=== PATIENT | female | born 1990 | race Caucasian/White ===

== ENCOUNTER 2017-10-06 12:34 | Emergency (ER) | payer MEDICAID ==
[~2017-10-06] VITALS: Ht 167.6 cm; Wt 70.4 kg
[2017-10-06 12:45] VITALS: BP 133/77
[2017-10-06] MEDS ORDERED: MELA3TAB2 PO (13:14)
[2017-10-06] MEDS ORDERED: PREN1TAB85 PO (13:14)
[2017-10-06 13:15] LABS: BASOPHILS # (AUTO) 0.04 x10^3/uL (0-0.1); BASOPHILS % (AUTO) 0 % (0-1); EOSINOPHILS # (AUTO) 0.08 x10^3/uL (0-0.4); EOSINOPHILS % (AUTO) 1 % (1-7); LYMPHOCYTES # (AUTO) 2.98 x10^3/uL (1-3.4); LYMPHOCYTES % (AUTO) 25 % (22-44); MD NO; MEAN CORPUSCULAR HGB CONC 33.9 g/dL (32.4-35.8); MEAN CORPUSCULAR VOLUME 100.5 fL (80-100); MEAN PLATELET VOLUME 10.2 fL (7.4-10.4); MONOCYTES # (AUTO) 0.55 x10^3/uL (0.2-0.8); MONOCYTES % (AUTO) 5 % (2-9); NEUTROPHILS # (AUTO) 8.14 x10^3/uL (1.8-6.8); NEUTROPHILS % (AUTO) 69 % (42-75); PLATELET COUNT 195 x10^3/uL (130-400); RED BLOOD COUNT 3.78 x10^6/uL (3.82-5.3); RED CELL DISTRIBUTION WIDTH 12.8 % (9.6-15.2)
[2017-10-06 13:26] LABS: ALBUMIN 3.1 g/dL (3.4-5.0); ANION GAP 8 mmol/L (5-15); CALCIUM 8.8 mg/dL (8.5-10.1); CHLORIDE 109 mmol/L (98-107); CREATININE 0.58 mg/dL (0.55-1.02)
[2017-10-06 13:35] LABS: MICROSCOPIC AUTO
[2017-10-06 13:36] LABS: CULTURE INDICATED? YES
== END 2017-10-06 14:26 | disposition home or self-care (01) ==
LOC: ED 14:20
DX: O26.892 Other specified pregnancy related conditions, second trimester (principal); Z3A.18 18 weeks gestation of pregnancy; R10.2 Pelvic and perineal pain
CPT/HCPCS: 36415; 76815; 80048; 81001; 82040; 84702; 85025; 87086; 99285

== ENCOUNTER 2017-12-30 18:05 | Outpatient (CLI) | payer MEDICAID ==
[~2017-12-30] VITALS: Ht 167.6 cm; Wt 73.6 kg
[~2017-12-30 18:05] MED LIST: MELA3TAB2 PO; PREN1TAB85 PO
[2017-12-30 18:53] LABS: MICROSCOPIC NOT IND
[2017-12-30 18:54] VITALS: BP 120/70
[2017-12-30 19:07] LABS: AMPHETAMINE SCREEN, URINE Negative (Negative); BARBITURATE SCREEN, URINE Negative (Negative); BENZODIAZEPINE SCREEN, URINE Negative (Negative); CANNABINOID SCREEN, URINE Positive (Negative); COCAINE SCREEN, URINE Negative (Negative); METHADONE SCREEN, URINE Negative (Negative); OPIATE SCREEN, URINE Negative (Negative)
== END 2017-12-30 19:35 | disposition home or self-care (01) ==
LOC: LDOP 18:05
PROVIDERS: ATTEND Obstetrics & Gynecology
DX: O36.8130 Decreased fetal movements, third trimester, not applicable or unspecified (principal); Z3A.30 30 weeks gestation of pregnancy
CPT/HCPCS: 59025; 80307; 81003; 87086; 99211; G0463

== ENCOUNTER 2018-03-03 07:21 | Inpatient (IN) | payer MEDICAID ==
[~2018-03-03] VITALS: Ht 167.6 cm; Wt 86.0 kg
[2018-03-03] MEDS ORDERED: OXYTOCIN 30U/ 0.9% NaCL 500ML 500 ML IV ONE (08:06)
[2018-03-03] MEDS ORDERED: LACTATED RINGERS 1,000 ML IV SCH (08:06)
[2018-03-03] MEDS ORDERED: D5%-LACTATED RINGERS 1,000 ML IV SCH (08:06)
[2018-03-03] MEDS ORDERED: OXYTOCIN 30U/ 0.9% NaCL 500ML 500 ML IV PRN (08:06)
[2018-03-03] MEDS ORDERED: PLEASE ENTER HEIGHT AND WEIGHT MC SCH (08:30)
[2018-03-03] MEDS ORDERED: ONDANSETRON 2MG/ML, 2ML IVPush PRN (08:30)
[2018-03-03] MEDS ORDERED: CALCIUM CARBONATE 500 MG TAB.CHEW PO PRN ×2 (08:30→19:30)
[2018-03-03] MEDS ORDERED: OXYTOCIN 30U/ 0.9% NaCL 500ML 500 ML ONE ×2 (08:32→19:22)
[2018-03-03] MEDS ORDERED: NEWBORN KIT ONE ×2 (08:32→13:02)
[2018-03-03] MEDS ORDERED: MISOPROSTOL 200 MCG TABLET ONE (08:32)
[2018-03-03 08:44] LABS: BASOPHILS # (AUTO) 0.04 x10^3/uL (0-0.1); BASOPHILS % (AUTO) 0 % (0-1); EOSINOPHILS # (AUTO) 0.13 x10^3/uL (0-0.4); EOSINOPHILS % (AUTO) 1 % (1-7); LYMPHOCYTES # (AUTO) 2.87 x10^3/uL (1-3.4); LYMPHOCYTES % (AUTO) 32 % (22-44); MD NO; MEAN CORPUSCULAR HEMOGLOBIN 32.9 pg (27.0-34.8); MEAN CORPUSCULAR HGB CONC 33.2 g/dL (32.4-35.8); MEAN CORPUSCULAR VOLUME 99.3 fL (80-100); MEAN PLATELET VOLUME 9.5 fL (7.4-10.4); MONOCYTES # (AUTO) 0.54 x10^3/uL (0.2-0.8); MONOCYTES % (AUTO) 6 % (2-9); NEUTROPHILS # (AUTO) 5.46 x10^3/uL (1.8-6.8); NEUTROPHILS % (AUTO) 61 % (42-75); PLATELET COUNT 185 x10^3/uL (130-400); RED BLOOD COUNT 3.44 x10^6/uL (3.82-5.3); RED CELL DISTRIBUTION WIDTH 13.8 % (9.6-15.2)
[2018-03-03 09:22] VITALS: BP 122/67
[2018-03-03] MEDS ORDERED: FENTANYL PF 100 MCG/2ML ONE ×2 (16:40→17:35)
[2018-03-03] MEDS: FENTANYL PF 100 MCG/2ML IVPush PRN ×2 (16:45→17:36)
[2018-03-03] MEDS ORDERED: FENTANYL/BUPIV./NS/PF 250 ML EPIDCONT SCH (17:31)
[2018-03-03] MEDS ORDERED: FENTANYL PF 500 MCG, BUPIVACAINE/PF 0.5%, 30ML 62.5 ML in SODIUM CHLORIDE 0.9% 177.5 ML EPIDCONT SCH (18:00)
[2018-03-03] MEDS ORDERED: MEPERIDINE/PF 100 MG/ML IM PRN (18:30)
[2018-03-03] MEDS ORDERED: OXYTOCIN 30U/ 0.9% NaCL 500ML 500 ML IV SCH (19:18)
[2018-03-03] MEDS ORDERED: IBUPROFEN 600 MG TABLET ONE (19:23)
[2018-03-03] MEDS: OXYTOCIN 30U/ 0.9% NaCL 500ML 500 ML IV SCH (19:28)
[2018-03-03] MEDS ORDERED: MAGNESIUM HYDROXIDE 8%, 30ML UDC PO PRN (19:30)
[2018-03-03] MEDS ORDERED: ACETAMINOPHEN 325 MG TABLET PO PRN (19:30)
[2018-03-03] MEDS ORDERED: OXYTOCIN 10 UNITS/ML, 1ML IM PRN (19:30)
[2018-03-03] MEDS ORDERED: METHYLERGONOVINE 0.2 MG/ML IM PRN (19:30)
[2018-03-03] MEDS ORDERED: ONDANSETRON 2MG/ML, 2ML IV PRN (19:30)
[2018-03-03 21:10] VITALS: BP 110/72
[2018-03-03] MEDS: OXYcodone/APAP 5/325MG TABLET PO PRN (21:34)
[2018-03-03] MEDS: DOCUSATE 100 MG CAPSULE PO PRN (21:34)
[2018-03-04 00:45] VITALS: BP 108/69
[2018-03-04] MEDS: IBUPROFEN 800 MG TABLET PO PRN ×3 (00:59→19:07)
[2018-03-04] MEDS: OXYcodone/APAP 5/325MG TABLET PO PRN ×5 (00:59→19:07)
[2018-03-04 05:05] VITALS: BP 117/74
[2018-03-04] MEDS: OXYTOCIN 30U/ 0.9% NaCL 500ML 500 ML IV SCH ×2 (05:18→15:18)
[2018-03-04 05:57] LABS: BASOPHILS # (AUTO) 0.03 x10^3/uL (0-0.1); BASOPHILS % (AUTO) 0 % (0-1); EOSINOPHILS # (AUTO) 0.01 x10^3/uL (0-0.4); EOSINOPHILS % (AUTO) 0 % (1-7); LYMPHOCYTES % (AUTO) 23 % (22-44); MD NO; MEAN CORPUSCULAR HEMOGLOBIN 34.3 pg (27.0-34.8); MEAN CORPUSCULAR HGB CONC 34.3 g/dL (32.4-35.8); MEAN PLATELET VOLUME 9.8 fL (7.4-10.4); MONOCYTES # (AUTO) 0.74 x10^3/uL (0.2-0.8); MONOCYTES % (AUTO) 5 % (2-9); NEUTROPHILS # (AUTO) 10.42 x10^3/uL (1.8-6.8); NEUTROPHILS % (AUTO) 71 % (42-75); PLATELET COUNT 193 x10^3/uL (130-400); RED CELL DISTRIBUTION WIDTH 14.2 % (9.6-15.2)
[2018-03-04 08:00] VITALS: BP 116/73
[2018-03-04] MEDS: DOCUSATE 100 MG CAPSULE PO PRN ×2 (08:00→23:35)
[2018-03-04] MEDS ORDERED: PRENATAL VIT/IRON/FA 1 EACH TABLET PO SCH (09:00)
[2018-03-04 12:00] VITALS: BP 127/75
[2018-03-04] MEDS ORDERED: DIPH,PERTUSS(ACELL),TET VAC/PF NC IM-VACC ONE ×2 (13:58→14:30)
[2018-03-04] MEDS ORDERED: OXYcodone IR 5MG TABLET PO PRN (18:00)
[2018-03-04 19:05] VITALS: BP 111/72
[2018-03-05] MEDS: OXYTOCIN 30U/ 0.9% NaCL 500ML 500 ML IV SCH (01:18)
[2018-03-05] MEDS: OXYcodone/APAP 5/325MG TABLET PO PRN (05:59)
[2018-03-05] MEDS: IBUPROFEN 800 MG TABLET PO PRN (05:59)
[2018-03-05 08:00] VITALS: BP 113/75
[2018-03-05] MEDS ORDERED: IBUP-1223 PO (09:36)
[2018-03-05] MEDS ORDERED: OXYC-302 PO (09:36)
== END 2018-03-05 13:04 | disposition home or self-care (01) | DRG 807 ==
LOC: LDIP 07:21 → 2NW 20:44
PROVIDERS: ADMIT Obstetrics & Gynecology; ATTEND Obstetrics & Gynecology
PROC: 10E0XZZ Delivery of Products of Conception, External Approach (ICD-10-PCS; principal; 2018-03-03)
PROC: 0KQM0ZZ Repair Perineum Muscle, Open Approach (ICD-10-PCS; 2018-03-03)
PROC: 10907ZC Drainage of Amniotic Fluid, Therapeutic from Products of Conception, Via Natural or Artificial Opening (ICD-10-PCS; 2018-03-03)
PROC: 3E033VJ Introduction of Other Hormone into Peripheral Vein, Percutaneous Approach (ICD-10-PCS; 2018-03-03)
PROC: 0W8NXZZ Division of Female Perineum, External Approach (ICD-10-PCS; 2018-03-03)
DX: O70.1 Second degree perineal laceration during delivery (principal); Z37.0 Single live birth; Z3A.39 39 weeks gestation of pregnancy
CPT/HCPCS: 36415; 85025; 86850; 86900; 90715; G0378; J3010; J2590; J7120

== ENCOUNTER 2018-07-16 19:24 | Emergency (ER) | payer MEDICAID ==
[~2018-07-16] VITALS: Ht 170.2 cm; Wt 81.8 kg
[~2018-07-16 19:24] MED LIST changes: +IBUP-1223 PO; +OXYC-302 PO
[2018-07-16 19:28] VITALS: BP 125/85
== END 2018-07-16 20:26 | disposition home or self-care (01) ==
LOC: ED 20:11
DX: G89.29 Other chronic pain (principal); M79.672 Pain in left foot; M79.671 Pain in right foot; Z87.891 Personal history of nicotine dependence
CPT/HCPCS: 99283

== ENCOUNTER 2019-04-07 21:07 | Emergency (ER) | payer MEDICAID ==
[~2019-04-07 21:07] MED LIST changes: +ALLO300T PO; +CEFD300C37 PO; +LEVO50TA5 PO; -MELA3TAB2 PO; +MELA3TAB56 PO; +SERT100T PO
--- NOTE | 2019-04-07 21:21 | NUR ---
NIL WHEN CALLED FOR TRIAGE
--- NOTE | 2019-04-07 21:34 | NUR ---
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
== END 2019-04-07 21:36 | disposition left against medical advice (07) ==
LOC: ED 21:30
DX: R05 Cough (principal); J02.9 Acute pharyngitis, unspecified; Z53.21 Procedure and treatment not carried out due to patient leaving prior to being seen by health care provider

== ENCOUNTER 2020-09-09 10:52 | Emergency (ER) | payer MEDICAID ==
[~2020-09-09] VITALS: Ht 165.1 cm; Wt 82.0 kg
[~2020-09-09 10:52] MED LIST changes: +MELA3TAB31 PO; -MELA3TAB56 PO; -OXYC-302 PO; +OXYC1TAB14 PO
--- NOTE | 2020-09-09 11:01 | NUR ---
0900 PT STARTED HAVING LOWER ABD/R FLANK PAIN AND FEELING LIKE SHE NEEDED TO URINATE. HX OF UTI'S AND KIDNEY STONES. STATES IT FEELS LIKE SHES HAVING A KIDNEY INFECTION.
[2020-09-09] MEDS ORDERED: KETOROLAC 30 MG/1 ML ONE (11:11)
[2020-09-09] MEDS ORDERED: MORPHINE SULFATE 4 MG/ML, 1ML ONE (11:11)
[2020-09-09 11:17] LABS: BASOPHILS % (AUTO) 1 % (0-1); EOSINOPHILS % (AUTO) 1 % (1-7); LYMPHOCYTES % (AUTO) 39 % (22-44); MEAN CORPUSCULAR HEMOGLOBIN 33.9 pg (27.0-34.8); MEAN CORPUSCULAR HGB CONC 34.3 g/dL (32.4-35.8); MEAN PLATELET VOLUME 9.1 fL (7.4-10.4); MONOCYTES % (AUTO) 7 % (2-9); NEUTROPHILS % (AUTO) 52 % (42-75); PLATELET COUNT 196 x10^3/uL (130-400); RED BLOOD COUNT 4.03 x10^6/uL (3.82-5.3); RED CELL DISTRIBUTION WIDTH 12.4 % (9.6-15.2)
--- NOTE | 2020-09-09 11:23 | NUR ---
PT AMBULATES TO BATHROOM
[2020-09-09 11:29] LABS: ALANINE AMINOTRANSFERASE 36 U/L (12-78); ALBUMIN 3.6 g/dL (3.4-5.0); ANION GAP 9 mmol/L (5-15); CALCIUM 8.8 mg/dL (8.5-10.1); CHLORIDE 107 mmol/L (98-107); CREATININE 0.73 mg/dL (0.55-1.02)
[2020-09-09] MEDS ORDERED: KETOROLAC 30 MG/1 ML IVPush ONE (11:30)
[2020-09-09] MEDS ORDERED: MORPHINE SULFATE 4 MG/ML, 1ML IVPush PRN (11:30)
[2020-09-09] MEDS ORDERED: SODIUM CHLORIDE FLUSH 10ML SYR IVF ONE (11:30)
[2020-09-09 11:34] LABS: ALKALINE PHOSPHATASE 72 U/L (45-117); BILIRUBIN,TOTAL 0.6 mg/dL (0.2-1.0)
--- NOTE | 2020-09-09 11:45 | NUR ---
PT SLEEPING IN BED. VSS.
[2020-09-09 11:55] LABS: MICROSCOPIC AUTO
--- NOTE | 2020-09-09 12:02 | NUR ---
PT TO CT
--- NOTE | 2020-09-09 12:12 | NUR ---
PT RETURNS FROM CT. RESTING IN BED WITH EYES CLOSED. VSS
--- NOTE | 2020-09-09 12:50 | NUR ---
PT STATES HER FLANK FEELS MUCH BETTER. VSS
[2020-09-09 13:15] VITALS: BP 136/85
--- NOTE | 2020-09-09 13:19 | NUR ---
pt sleeping on gurney, respirations even and unlabored. nadn/vss. call light within reach
--- NOTE | 2020-09-09 14:19 | NUR ---
Patient given discharge instructions and they have confirmed that they understand the instructions. Patient ambulatory with steady gait.
== END 2020-09-09 14:30 | disposition home or self-care (01) ==
LOC: ED 14:03
DX: N13.2 Hydronephrosis with renal and ureteral calculous obstruction (principal); R31.9 Hematuria, unspecified; F17.200 Nicotine dependence, unspecified, uncomplicated
CPT/HCPCS: 36415; 74176; 80053; 81001; 84703; 85025; 87086; 96374; 96375; 99284; J1885; J2270